=== PATIENT | female | born 1965 | race Caucasian/White ===

== ENCOUNTER 2024-05-24 08:30 | Outpatient (CLI) | payer MEDICAID | END 2024-05-24 23:59 | disposition home or self-care (01) | LOC: MRI 08:30 | PROVIDERS: ATTEND Family Medicine Sports Medicine | DX: M51.16 Intervertebral disc disorders with radiculopathy, lumbar region (principal); M47.16 Other spondylosis with myelopathy, lumbar region; M53.3 Sacrococcygeal disorders, not elsewhere classified; M48.07 Spinal stenosis, lumbosacral region; M47.818 Spondylosis without myelopathy or radiculopathy, sacral and sacrococcygeal region | CPT/HCPCS: 72148 ==